=== PATIENT | male | born 1940 | race Native Hawaiian/Other Pacific Islander ===

== ENCOUNTER 2016-11-21 16:45 | Outpatient (CLI) | payer OTHER ==
[~2016-11-21 16:45] MED LIST: ALBU90AE13 INH; CLARITIN10 MG PO; MULTIVITAMI1 OR; OMEP20CA PO; SPIRIVA IN; VITAMIN C1000 MG PO
[2016-11-21 17:08] LABS: PLATELET COUNT 215 K/uL (142-355)
[2016-11-21 18:18] LABS: POTASSIUM 4.3 mmol/L (3.6-5.2); SODIUM 138 mmol/L (136-145)
== END 2016-11-21 19:12 | disposition home or self-care (01) ==
LOC: LAB 16:45
PROVIDERS: Nurse Practitioner Family
DX: Z00.00 Encounter for general adult medical examination without abnormal findings (principal); Z79.899 Other long term (current) drug therapy; J44.9 Chronic obstructive pulmonary disease, unspecified; K21.9 Gastro-esophageal reflux disease without esophagitis; Z51.81 Encounter for therapeutic drug level monitoring
CPT/HCPCS: 36415; 80053; 80061; 83036; 84439; 84443; 85027

== ENCOUNTER 2018-04-21 06:48 | Outpatient (CLI) | payer OTHER ==
[2018-04-21 07:54] LABS: PLATELET COUNT 227 K/uL (142-355)
[2018-04-21 08:56] LABS: POTASSIUM 4.2 mmol/L (3.6-5.2)
== END 2018-04-21 19:02 | disposition home or self-care (01) ==
LOC: LABW 06:48
DX: R42 Dizziness and giddiness (principal); K21.0 Gastro-esophageal reflux disease with esophagitis; H90.3 Sensorineural hearing loss, bilateral; Z79.899 Other long term (current) drug therapy
CPT/HCPCS: 36415; 80053; 80061; 83036; 85027

== ENCOUNTER 2018-04-23 07:50 | Outpatient (CLI) | payer OTHER | END 2018-04-23 23:09 | disposition home or self-care (01) | LOC: CT 07:50 | DX: R42 Dizziness and giddiness (principal); H90.3 Sensorineural hearing loss, bilateral ==

== ENCOUNTER 2018-05-22 10:40 | Outpatient (CLI) | payer OTHER | END 2018-05-22 23:25 | disposition home or self-care (01) | LOC: RESP 10:40 | DX: R06.02 Shortness of breath (principal); R05 Cough; J44.9 Chronic obstructive pulmonary disease, unspecified ==

== ENCOUNTER 2019-09-16 08:31 | Outpatient (CLI) | payer OTHER ==
[2019-09-16 09:37] LABS: POTASSIUM 3.8 mmol/L (3.6-5.2)
[2019-09-16 09:56] LABS: PLATELET COUNT 201 K/uL (142-355)
== END 2019-09-16 19:39 | disposition home or self-care (01) ==
LOC: LABW 08:31
PROVIDERS: Nurse Practitioner
DX: R42 Dizziness and giddiness (principal); I83.813 Varicose veins of bilateral lower extremities with pain; H90.3 Sensorineural hearing loss, bilateral; J44.9 Chronic obstructive pulmonary disease, unspecified; K21.0 Gastro-esophageal reflux disease with esophagitis; E55.9 Vitamin D deficiency, unspecified; Z79.899 Other long term (current) drug therapy
CPT/HCPCS: 36415; 80053; 80061; 82043; 82306; 82570; 83735; 85027; 86038

== ENCOUNTER 2020-05-26 08:19 | Outpatient (CLI) | payer OTHER ==
[2020-05-26 08:30] LABS: PLATELET COUNT 195 K/uL (142-355)
[2020-05-26 09:37] LABS: POTASSIUM 4.1 mmol/L (3.6-5.2)
== END 2020-05-26 23:50 | disposition home or self-care (01) ==
LOC: LABW 08:19
PROVIDERS: Family Medicine
DX: E61.2 Magnesium deficiency (principal); D64.89 Other specified anemias; R39.15 Urgency of urination; E55.9 Vitamin D deficiency, unspecified; N40.0 Benign prostatic hyperplasia without lower urinary tract symptoms
CPT/HCPCS: 36415; 80053; 82306; 83735; 84153; 85027

== ENCOUNTER 2020-11-20 08:48 | Outpatient (CLI) | payer OTHER ==
[2020-11-20 09:03] LABS: PLATELET COUNT 191 K/uL (142-355)
[2020-11-20 09:50] LABS: POTASSIUM 4.4 mmol/L (3.6-5.2)
== END 2020-11-20 19:18 | disposition home or self-care (01) ==
LOC: LABW 08:48
PROVIDERS: ATTEND Nurse Practitioner
DX: E61.2 Magnesium deficiency (principal); D64.89 Other specified anemias; R39.15 Urgency of urination; E55.9 Vitamin D deficiency, unspecified; Z79.899 Other long term (current) drug therapy; N40.0 Benign prostatic hyperplasia without lower urinary tract symptoms
CPT/HCPCS: 36415; 80053; 80061; 82306; 84153; 85027

== ENCOUNTER 2023-04-09 08:03 | Outpatient (CLI) | payer OTHER ==
[~2023-04-09] VITALS: Ht 165.1 cm; Wt 79.4 kg
[2023-04-09 08:10] VITALS: BP 102/60; TEMP 97.6
[2023-04-09 19:40] VITALS: BP 105/68; TEMP 98
[2023-04-09 20:25] VITALS: BP 106/62; TEMP 98.2
== END 2023-04-09 21:00 | disposition home or self-care (01) ==
LOC: INF 08:03
PROVIDERS: ATTEND Internal Medicine Endocrinology, Diabetes & Metabolism
DX: N39.0 Urinary tract infection, site not specified (principal)
CPT/HCPCS: 96365; J0713

== ENCOUNTER 2023-04-10 07:38 | Outpatient (CLI) | payer OTHER ==
[~2023-04-10] VITALS: Ht 165.1 cm; Wt 81.6 kg
[2023-04-10 07:45] VITALS: BP 115/60; TEMP 97.7
== END 2023-04-10 23:00 | disposition home or self-care (01) ==
LOC: INF 07:38
PROVIDERS: ATTEND Internal Medicine Endocrinology, Diabetes & Metabolism
DX: N39.0 Urinary tract infection, site not specified (principal)
CPT/HCPCS: 96365; J0713

== ENCOUNTER 2023-04-11 07:52 | Outpatient (CLI) | payer OTHER ==
[~2023-04-11] VITALS: Ht 30.5 cm; Wt 0.5 kg
[2023-04-11 07:58] VITALS: BP 78/51; TEMP 97.3
== END 2023-04-11 23:18 | disposition home or self-care (01) ==
LOC: INF 07:52
PROVIDERS: ATTEND Internal Medicine
DX: N39.0 Urinary tract infection, site not specified (principal)
CPT/HCPCS: 96365; J0713

== ENCOUNTER 2023-05-29 09:10 | Outpatient (CLI) | payer OTHER ==
[~2023-05-29] VITALS: Ht 165.1 cm; Wt 68.0 kg
[2023-05-29 09:15] VITALS: BP 87/51; TEMP 97.5
[2023-05-29 21:05] VITALS: BP 101/59; TEMP 98.4
[2023-05-29 23:10] VITALS: BP 112/62; TEMP 98.4
== END 2023-05-29 18:37 | disposition home or self-care (01) ==
LOC: INF 09:10
PROVIDERS: ATTEND Internal Medicine Endocrinology, Diabetes & Metabolism
DX: N39.0 Urinary tract infection, site not specified (principal)
CPT/HCPCS: 96365; J0713

== ENCOUNTER 2023-05-30 09:00 | Outpatient (CLI) | payer OTHER ==
[~2023-05-30] VITALS: Ht 165.1 cm; Wt 68.0 kg
[2023-05-30 09:05] VITALS: BP 122/61; TEMP 97.8
[2023-05-30 21:20] VITALS: BP 133/70; TEMP 98.1
== END 2023-05-30 19:13 | disposition home or self-care (01) ==
LOC: INF 09:00
PROVIDERS: ATTEND Internal Medicine Endocrinology, Diabetes & Metabolism
DX: N39.0 Urinary tract infection, site not specified (principal)
CPT/HCPCS: 96365; J0713

== ENCOUNTER 2023-05-31 09:14 | Outpatient (CLI) | payer OTHER ==
[~2023-05-31] VITALS: Ht 165.1 cm; Wt 68.0 kg
[2023-05-31 09:25] VITALS: BP 82/49; TEMP 98.3
[2023-05-31 21:10] VITALS: BP 87/53; TEMP 98.3
== END 2023-05-31 23:15 | disposition home or self-care (01) ==
LOC: INF 09:14
PROVIDERS: ATTEND Internal Medicine Endocrinology, Diabetes & Metabolism
DX: N39.0 Urinary tract infection, site not specified (principal)
CPT/HCPCS: 96365; J0713

== ENCOUNTER 2023-06-01 09:00 | Outpatient (CLI) | payer OTHER ==
[~2023-06-01] VITALS: Ht 33 cm; Wt 0.5 kg
[2023-06-01 09:33] VITALS: BP 100/60; TEMP 98.5
[2023-06-01 21:00] VITALS: BP 121/58; TEMP 98.1
[2023-06-01 21:52] VITALS: BP 124/69; TEMP 98
== END 2023-06-01 22:00 | disposition home or self-care (01) ==
LOC: INF 09:00
PROVIDERS: ATTEND Internal Medicine Endocrinology, Diabetes & Metabolism
DX: N39.0 Urinary tract infection, site not specified (principal)
CPT/HCPCS: J0713

== ENCOUNTER 2023-06-02 09:01 | Outpatient (CLI) | payer OTHER ==
[~2023-06-02] VITALS: Ht 165.1 cm; Wt 68.0 kg
[2023-06-02 09:10] VITALS: BP 97/53; TEMP 97.7
[2023-06-02 20:30] VITALS: BP 140/74; TEMP 97.7
[2023-06-02 21:30] VITALS: BP 129/69; TEMP 98.2
== END 2023-06-02 23:00 | disposition home or self-care (01) ==
LOC: INF 09:01
PROVIDERS: ATTEND Internal Medicine Endocrinology, Diabetes & Metabolism
DX: N39.0 Urinary tract infection, site not specified (principal)
CPT/HCPCS: 96365; J0713

== ENCOUNTER 2023-06-03 08:55 | Outpatient (CLI) | payer OTHER ==
[~2023-06-03] VITALS: Ht 165.1 cm; Wt 68.0 kg
[2023-06-03 09:05] VITALS: BP 93/50; TEMP 98.5
[2023-06-03 20:30] VITALS: BP 90/51; TEMP 98.3
[2023-06-03 21:30] VITALS: BP 88/44; TEMP 98.4
== END 2023-06-03 23:00 | disposition home or self-care (01) ==
LOC: INF 08:55
PROVIDERS: ATTEND Internal Medicine Endocrinology, Diabetes & Metabolism
DX: N39.0 Urinary tract infection, site not specified (principal)
CPT/HCPCS: 96365; 96366; J0713

== ENCOUNTER 2023-06-04 09:07 | Outpatient (CLI) | payer OTHER ==
[~2023-06-04] VITALS: Ht 165.1 cm; Wt 68.0 kg
[2023-06-04 21:45] VITALS: BP 124/66; TEMP 98.1
[2023-06-04 23:08] VITALS: BP 126/88; TEMP 98.5
== END 2023-06-04 19:48 | disposition home or self-care (01) ==
LOC: INF 09:07
PROVIDERS: ATTEND Internal Medicine
DX: N39.0 Urinary tract infection, site not specified (principal)
CPT/HCPCS: 96365; 96366; J0713

== ENCOUNTER 2023-06-05 08:56 | Outpatient (CLI) | payer OTHER ==
[~2023-06-05] VITALS: Ht 165.1 cm; Wt 70.8 kg
[2023-06-05 09:00] VITALS: BP 118/54; TEMP 97.4
== END 2023-06-05 19:11 | disposition home or self-care (01) ==
LOC: INF 08:56
PROVIDERS: ATTEND Internal Medicine
DX: N39.0 Urinary tract infection, site not specified (principal)
CPT/HCPCS: 96365; 96366; J0713